=== PATIENT | female | born 1975 | race Caucasian/White ===

== ENCOUNTER 2022-10-08 10:37 | Emergency (ER) | payer MEDICAID ==
[2022-10-08] MEDS ORDERED: HYDROmorphone 0.5 MG/0.5 ML Syringe IVPUSH ONE (11:33)
[2022-10-08] MEDS ORDERED: Ketorolac 30 MG/ML SDV IVPUSH ONE (11:33)
[2022-10-08] MEDS ORDERED: Ondansetron 4 MG/2 ML SDV IVPUSH ONE (11:33)
== END 2022-10-08 13:17 | disposition home or self-care (01) ==
LOC: JP.ED 10:37
DX: G43.909 Migraine, unspecified, not intractable, without status migrainosus (principal); F17.210 Nicotine dependence, cigarettes, uncomplicated; Z86.16 Personal history of COVID-19
CPT/HCPCS: 96374; 96375; 99283; J1170; J1885; J2405